=== PATIENT | female | born 1960 | race Two or more races ===

== ENCOUNTER 2024-12-04 03:01 | Inpatient (IN) | payer MEDICARE, MEDICAID ==
[~2024-12-04] VITALS: Ht 160 cm; Wt 93.8 kg
[2024-12-04] VITALS (9 sets, daily range): BP systolic 132–184; BP diastolic 74–101; PULSE 63–76; RESP 16–18; TEMP 97.4–98.5; O2SAT 96–98
--- NOTE | 2024-12-04 03:24 | ED.PDOC ---
GI ASSESSMENT HPI Comments 64 year old female presents to the ED with a chief compliant of abdominal pain onset 2 days. Patient has PMHx Diverticulitis. She states pain is similar as to when she has a diverticulitis flare up. She is currently experiencing sharp, suprapubic pain as well as nausea, pressure sensation on rectum with bowel movement, dysuria. Denies fever, chills, vomiting, diarrhea, constipation, dizziness, headache, hematemesis, melena, blood in stool. No other symptoms or modifying factors present at this time. Chief Complaint: Abdominal Pain Time Seen by MD: 03:15 Primary Care Provider: DR BLACKBURN Reviewed Notes: Medications, Allergies Allergies: Coded Allergies: NO KNOWN ALLERGIES (Unverified , 05/01/14) Information Source: Patient Mode of Arrival: Ambulatory Duration: Since onset Quality: Cramping, Sharp Vomitus: None Severity: Moderate Recent: None Recent Hx of: None Pain Location: Suprapubic Modifying Factors: Nothing Associated sign and symptoms: Nausea, Abdominal Pain Past Medical History PAST MEDICAL HISTORY: DM Past Medical History (Other): diverticulitis Surgical History: Denies all surgeries GLASS CUTTER HAND History: No Pertinent GLASS CUTTER HAND History Family History Family History: Unknown Social History Smoker: Non-Smoker Alcohol: Denies ETOH Use Drugs: Denies Drug Use Lives In: Home Constitutional: denies: chills, diaphoresis, fatigue, fever, malaise, sweats, weakness, others EENTM: denies: blurred vision, double vision, ear bleeding, ear discharge, ear drainage, ear pain, ear ringing, eye pain, eye redness, hearing loss, mouth pain, mouth swelling, nasal discharge, nose bleeding, nose congestion, nose pain, photophobia, tearing, throat pain, throat swelling, voice changes, others Respiratory: denies: cough, hemoptysis, orthopnea, SOB at rest, shortness of breath, SOB with excertion, stridor, wheezing, others Cardiovascular: denies: chest pain, dizzy spells, diaphoresis, Dyspnea on exertion, edema, irregular heart beat, left arm pain, lightheadedness, pa lpitations, PND, syncope, others Gastrointestinal: reports: abdominal pain, nausea; denies: abdomen distended, blood streaked bowels, constipated, diarrhea, dysphagia, difficulty swallowing, hematemesis, melena, poor appetite, poor fluid intake, rectal bleeding, rectal pain, vomiting, others Genitourinary: reports: dysuria; denies: abnormal vagina bleeding, burning, dyspareunia, flank pain, frequency, hematuria, incontinence, pain, , vagina discharge, urgency, others Neurological: denies: dizziness, fainting, headache, left sided numbness, left sided weakness, numbness, paresthesia, pre-existing deficit, right sided numbnes s, right sided weakness, seizure, speech problems, tingling, tremors, weakness, others Musculoskeletal: denies: back pain, gout, joint pain, joint swelling, muscle pain, muscle stiffness, neck pain, others Integumetry: denies: bruises, change in color, change in hair/nails, dryness, laceration, lesions, lumps, rash, wounds, others Allergic/Immunocompromised: denies: Difficulty Healing, Frequent Infections, Hives, Itching, others Hematologic/Lymphatic: denies: anemia, blood clots, easy bleeding, easy bruising, swollen glands, others Endocrine: denies: excessive hunger, excessive sweating, excessive thirst, excessive urination, flushing, intolerance to cold, intolerance to heat, unexplained weight gain, unexplained weight loss, others Psychiatric: denies: anxiety, bipolar disorder, depression, hopeless, panic disorder, schizophrenia, sleepless, suicidal, others All Other Systems: Reviewed and Negative Physical Exam General Appearance: Normal HEENT: Normal ENT Inspection, Pharynx Normal, TMs Normal Neck: Full Range of Motion, Non-Tender, Normal, Normal Inspection Respiratory: Chest Non-Tender, Lungs Clear, No Accessory Muscle Use, No Respi ratory Distress, Normal Breath Sounds Cardiovascular: No Edema, No JVD, No Murmur, No Gallop, Normal Peripheral Pulses, Regular Rate/Rhythm Breast Exam: Deferred Gastrointestinal: No Organomegaly, Non Tender, No Pulsatile Mass, Normal Bowel Sounds, Soft Genitalia: Deferred Pelvic: Deferred Rectal: Deferred Extremities: No calf tenderness, Normal capillary refill, Normal inspection, Normal range of motion, Non-tender, No pedal edema Musculoskeletal : Apperance: Normal Neurologic: Alert, senior executive assistant II-XII nml as Tested, No Motor Deficits, Normal Affect, Normal Mood, No Sensory Deficits Cerebellar Function: Normal Reflexes: Normal Skin: Dry, Normal Color, Warm Lymphatic: No Adenopathy Was a procedure done? Was a procedure done?: No GI differential Dx Differential Diagnosis: Diverticular disease, UTI, Urolithiasis, Dehydration, Electrolyte Imbalance, Food Poisoning X-Ray, Labs, Meds, VS Vital Signs Date Time Temp Pulse Resp B/P (MAP) Pulse Ox O2 Delivery O2 Flow Rate FiO2 12/04/24 06:30 155/60 (91) 12/04/24 05:07 76 16 96 Room Air* 0 21 12/04/24 05:06 170/80 (110) 12/04/24 04:50 98.6 76 16 186/89 (121) 96 98.6 12/04/24 03:02 99.0 80 20 172/90 95 99.0 Lab Test 12/04/24 04:08 12/04/24 03:39 Range/Units Urine Color Colorless Yellow Urine Clarity Clear Clear Urine pH 6.5 5.0-9.0 Urine Specific [place] 1.012 1.001-1.035 Urine Protein Negative Negative Urine Ketones Negative Negative Urine Blood Trace H Negative /uL Urine Nitrite Negative Negative Urine Bilirubin Negative Negative Urine Urobilinogen Normal Negative mg/dL Urine Leukocyte Esterase Negative Negative /uL Urine RBC 4 0 - 4 /hpf Urine Microscopic WBC 2 0-5 /HPF Urine Squamous Epithelial Cells Few <5 /hpf Urine Bacteria None seen None Seen /hpf Urine Glucose Normal Normal mg/dL White Blood Count 11.3 H 4.4-10.8 10^3/uL Red Blood Count 4.34 4.0-5.20 10^6/uL Hemoglobin 12.7 12.2-16.2 g/dL Hematocrit 37.6 36.0-46.0 % Mean Corpuscular Volume 86.7 80.0-100.0 fL Mean Corpuscular Hemoglobin 29.2 28.0-32.0 pg Mean Corpuscular Hemoglobin Concent 33.7 32.0-36.0 g/dL Red Cell Distribution Width 13.5 11.8-14.3 % Platelet Count 255 140-450 10^3/uL Mean Platelet Volume 9.1 6.9-10.8 fL Neutrophils (%) (Auto) 71.3 37.0-80.0 % Lymphocytes (%) (Auto) 20.2 10.0-50.0 % Monocytes (%) (Auto) 6.2 0.0-12.0 % Eosinophils (%) (Auto) 1.7 0.0-7.0 % Basophils (%) (Auto) 0.6 0.0-2.0 % Neutrophils # (Auto) 8.1 1.6-8.6 10 ^3/uL Lymphocytes # (Auto) 2.3 0.4-5.4 10 ^3/uL Monocytes # (Auto) 0.7 0-1.3 10 ^3/uL Eosinophils # (Auto) 0.2 0-0.8 10 ^3/uL Basophils # (Auto) 0.1 0-0.2 10 ^3/uL Nucleated Red Blood Cells 0.1 % Sodium Level 140 136-145 mmol/L Potassium Level 3.8 3.5-5.1 mmol/L Chloride Level 106 98-107 mmol/L Carbon Dioxide Level 23 20-31 mmol/L Anion Gap 11 5-15 Blood Urea Nitrogen 17 9-23 mg/dL Creatinine 0.99 0.550-1.02 mg/dL Glomerular Filtration Rate Calc 63 >90 mL/min BUN/Creatinine Ratio 17.2 10.0-20.0 Serum Glucose 146 H 74-106 mg/dL Calcium Level 9.2 8.7-10.4 mg/dL Total Bilirubin 0.4 0.2-1.0 mg/dL Aspartate Amino Transferase (AST) 14 13-40 U/L Alanine Aminotransferase (ALT) < 9 7-40 U/L Alkaline Phosphatase 134 H 46-116 U/L Total Protein 7.6 5.7-8.2 g/dL Albumin 4.3 3.2-4.8 g/dL Lipase 49 12-53 U/L Current Medications Medications (Trade) Dose Ordered Sig/Mishel Route Start Time Stop Time Status Last Admin Ondansetron HCl (Zofran) 4 mg ONCE ONCE IV 12/04/24 03:30 12/04/24 03:31 DC 12/04/24 04:59 Sodium Chloride 1,000 ml @ 1,000 mls/hr Q1H ONCE IVB 12/04/24 03:30 12/04/24 04:29 DC 12/04/24 04:58 Ketorolac Tromethamine (Toradol Injection) 15 mg ONCE ONCE IV 12/04/24 03:30 12/04/24 03:31 DC 12/04/24 05:01 Time of 1ST Reevaluation: 03:45 Reevaluation 1ST: Unchanged Patient Education/Counseling: Diagnosis, Treatment, Prognosis Family Education/Counseling: No Family Present SEPSIS Sepsis Screen Date sepsis recognized/suspect: Dec 04, 2024 Time Sepsis recognized/suspect: 306 Recent Procedure: No On Antibiotic Therapy: No Respiratory Rate >20: No Heart Rate >90: No Temp<36 C (96.8 F) or >38.3 C: No SBP <90 or MAP <65 mmHG: No New Acute Mental Status Change: No Is the patient on CPAP, BIPAP,: No Physician Orders Ct Ab Pel With Iv Con Only (12/04/24 03:23) Vital Signs Date Time Temp Pulse Resp B/P (MAP) Pulse Ox O2 Delivery O2 Flow Rate FiO2 12/04/24 06:30 155/60 (91) 12/04/24 05:07 76 16 96 Room Air* 0 21 12/04/24 05:06 170/80 (110) 12/04/24 04:50 98.6 76 16 186/89 (121) 96 98.6 12/04/24 03:02 99.0 80 20 172/90 95 99.0 Laboratory Tests Test 12/04/24 03:39 White Blood Count 11.3 10^3/uL (4.4-10.8) H Medications Medications Dose Ordered Sig/Mishel Route Start Time Stop Time Status Last Admin Dose Admin Ketorolac Tromethamine 15 mg ONCE ONCE IV 12/04/24 03:30 12/04/24 03:31 DC 12/04/24 05:01 Ondansetron HCl 4 mg ONCE ONCE IV 12/04/24 03:30 12/04/24 03:31 DC 12/04/24 04:59 Sodium Chloride 1,000 ml @ 1,000 mls/hr Q1H ONCE IVB 12/04/24 03:30 12/04/24 04:29 DC 12/04/24 04:58 Departure 1 Departure Time of Disposition: 06:58 (Patient presented with abdominal pain that was concerning for possible appendicits, gastritis, cholecystitis, colitis, gastroenteritis, sbo, or orther possible surgical emergency. Data: 1. I ordered and reviewed the result of at least 3 labs including a CBC, BMP, and Urinalysis. 2. I independently interpreted the following tests: CT Abdoment and Pelvis is concerning for acute diverticulitis .Risk:This patient has a high risk of morbidity due to further diagnostic testing or treatment and may suffer from an acute abdominal process disorder. Workup reveals acute diverticulitis and intractable abdominal pain and patient should be admitted for further workup. and possible expert consultation. ) Impression: Primary Impression: Acute diverticulitis Additional Impression: Intractable abdominal pain Disposition: ADMITTED INPATIENT Admit to: Med Surg Condition: Serious Critical Care Note Critical Care Time?: Yes Critical care comment: Intractable abdominal pain Authorized and Performed by: Rm Solano MD Total critical care time: Approximately 39 minutes Due to a high probability of clinically significant, life threatening deterioration, the patient required my highest level of preparedness to intervene emergently and I personally spent this critical care time directly and personally managing the patient. This critical care time included obtaining a history; examining the patient; pulse oximetry; ordering and review of studies; arranging urgent treatment with development of a management plan; evaluation of patient's response to treatment; frequent reassessment; and, discussions with other providers. This critical care time was performed to assess and manage the high probability of imminent, life-threatening deterioration that could result in multi-organ failure. It was exclusive of separately billable procedures and treating other patients and teaching time. Please see my other sections and the rest of the note for further information on patient assessment and treatment. Stability Stability form required: No I personally scribed for LIZZIE LEYVA MD ([email or web address]) on 12/04/24 at 03:23. Electronically submitted by Lurdes Menjivar ([email or web address]). LIZZIE LEYVA MD Dec 04, 2024 03:23 RM SOLANO MD Dec 04, 2024 06:59
[2024-12-04 04:00] LABS: Hematocrit 37.6 % (36.0-46.0); Hemoglobin 12.7 g/dL (12.2-16.2); Mean Corpuscular Hemoglobin 29.2 pg (28.0-32.0); Mean Corpuscular Volume 86.7 fL (80.0-100.0); Nucleated Red Blood Cells % 0.1 %
[2024-12-04 04:24] LABS: Albumin 4.3 g/dL (3.2-4.8); Anion Gap 11 (5-15); BUN/Creatinine Ratio 17.2 (10.0-20.0); Blood Urea Nitrogen 17 mg/dL (9-23); Calcium 9.2 mg/dL (8.7-10.4); Carbon Dioxide 23 mmol/L (20-31); Chloride 106 mmol/L (98-107); Lipase 49 U/L (12-53); Potassium 3.8 mmol/L (3.5-5.1); Sodium 140 mmol/L (136-145); Total Protein 7.6 g/dL (5.7-8.2)
[2024-12-04 04:25] LABS: Bilirubin, Total 0.4 mg/dL (0.2-1.0)
[2024-12-04 04:29] LABS: Alanine Aminotransferase < 9 U/L (7-40); Alkaline Phosphatase 134 U/L (46-116); Glucose 146 mg/dL (74-106)
[2024-12-04 04:48] LABS: Urine Protein, UAD Negative (Negative)
[2024-12-04] MEDS: SODIUM CHLORIDE 0.9% 1,000 ML IVB ONE (04:58)
[2024-12-04] MEDS: ONDANSETRON HCL 4 MG/2 ML VIAL IV ONE ×2 (04:59→07:00)
[2024-12-04] MEDS: KETOROLAC TROMETH 30 MG/ML 1ML VIAL IV ONE (05:01)
[2024-12-04] MEDS: IOHEXOL 300 MG/ML 100ML BOTTLE IJ ONE (06:02)
--- NOTE | 2024-12-04 06:24 | DVH ---
Exam: CT CT AB PEL WITH IV CON ONLY History: lower abd pain Comparison Study: None Technique: Multidetector spiral CT of the abdomen was performed from lung bases to pubic symphysis. A xial imaging was performed with intravenous contrast following the uneventful administration of 100 m l Omnipaque 300. Coronal and sagittal multiplanar reformats were obtained from the axial data set by the technologist. Radiation Dose : 1. Abdomen/Pelvis: CTDIvol 24.4 mGy, DLP 1530.3 mGy*cm. Findings: Lung Bases: Lung bases are clear. Visualized portions of the heart and pericardium are unremarkable. Liver: The liver is normal in size. No focal lesions. Gallbladder and Biliary Tree: The gallbladder is surgically absent. No intrahepatic biliary ductal d ilatation. The common bile duct measures 0.7 cm. Spleen: Unremarkable Pancreas: The pancreas enhances normally and there are no focal lesions. The main pancreatic duct is not dilated Adrenal Glands: Unremarkable Kidneys: Kidneys enhance symmetrically. No calculi or hydronephrosis. GI tract: The stomach is grossly normal in appearance. No evidence of small bowel wall thickening or abnormal dilatation to suggest bowel obstruction. There is colonic diverticulosis. There is severe m ucosal thickening of the sigmoid colon with fat stranding consistent with acute sigmoid diverticuliti s. Normal caliber appendix without acute appendicitis. Peritoneum/mesentery/retroperitoneum. No evidence of free intraperitoneal air. No ascites. No evidenc e of suspicious lymphadenopathy. Abdominal Wall: Unremarkable. Vasculature: Abdominal aorta and main branches are unremarkable. Normal vascular enhancement. Urinary Bladder: Grossly unremarkable for degree of distention. Pelvic Organs: Unremarkable Musculoskeletal: No aggressive focal bony lesions, acute fractures or dislocation. IMPRESSION: 1. Findings suggestive of acute uncomplicated sigmoid diverticulitis. 2. Prior cholecystectomy.
[2024-12-04] MEDS: MORPHINE SULFATE 4 MG/ML SYR/VIAL IV ONE (07:00)
[2024-12-04] MEDS: SODIUM CHLORIDE 0.9% 1,000 ML IV ONE (07:43)
[2024-12-04] MEDS: ceFAZolin 2 GM/D5W50ml 50 ML IV ONE (09:24)
--- NOTE | 2024-12-04 09:53 | DVHHP2 ---
Admitting Diagnosis: Chief Complaint Abdominal pain for 2 days, nausea, sharp pain to abdomen and rectum with bowel movements History of Present Illness History of Present Illness Abdominal pain: Patient presents with a 2-day history of abdominal pain. The pain is described as sharp and localized to the abdomen and rectum, particularly with bowel movements. Associated symptoms include nausea. Patient denies fever, chills, vomiting, dizziness, or melena in her stool. Diverticulitis: Patient has a history of diverticulitis, which may be related to her current abdominal pain presentation. Diabetes: Patient has a history of diabetes, though no specific details about current management or symptoms are provided. Obesity: Patient has a history of obesity, but no specific details about current weight status or management are provided. Medical History - Diverticulitis - Diabetes - Obesity Allergies - No known allergies Past Medical History PAST MEDICAL HISTORY: DM Past Medical History (Other): diverticulitis Surgical History: Denies all surgeries REAL ESTATE PROCESSOR History: No Pertinent REAL ESTATE PROCESSOR History Social History Smoker: Non-Smoker Alcohol: Denies ETOH Use Drugs: Denies Drug Use Lives In: Home Constitutional: denies: chills, diaphoresis, fatigue, fever, malaise, sweats, weakness, others EENTM: denies: blurred vision, double vision, ear bleeding, ear discharge, ear drainage, ear pain, ear ringing, eye pain, eye redness, hearing loss, mouth pain, mouth swelling, nasal discharge, nose bleeding, nose congestion, nose pain, photophobia, tearing, throat pain, throat swelling, voice changes, others Respiratory: denies: cough, hemoptysis, orthopnea, SOB at rest, shortness of breath, SOB with excertion, stridor, wheezing, others Cardiovascular: denies: chest pain, dizzy spells, diaphoresis, Dyspnea on exertion, edema, irregular heart beat, left arm pain, lightheadedness, palpitations, PND, syncope, others Gastrointestinal: reports: abdominal pain, nausea; denies: abdomen distended, blood streaked bowels, constipated, diarrhea, dysphagia, difficulty swallowing, hematemesis, melena, poor appetite, poor fluid intake, rectal bleeding, rectal pain, vomiting, others Genitourinary: reports: dysuria; denies: abnormal vagina bleeding, burning, dyspareunia, flank pain, frequency, hematuria, incontinence, pain, , vagina discharge, urgency, others Neurological: denies: dizziness, fainting, headache, left sided numbness, left sided weakness, numbness, paresthesia, pre-existing deficit, right sided numbness, right sided weakness, seizure, speech problems, tingling, tremors, weakness, others Musculoskeletal: denies: back pain, gout, joint pain, joint swelling, muscle pain, muscle stiffness, neck pain, others Integumetry: denies: bruises, change in color, change in hair/nails, dryness, laceration, lesions, lumps, rash, wounds, others Allergic/Immunocompromised: denies: Difficulty Healing, Frequent Infections, Hives, Itching, others Hematologic/Lymphatic: denies: anemia, blood clots, easy bleeding, easy bruising, swollen glands, others Endocrine: denies: excessive hunger, excessive sweating, excessive thirst, excessive urination, flushing, intolerance to cold, intolerance to heat, unexplained weight gain, unexplained weight loss, others Psychiatric: denies: anxiety, bipolar disorder, depression, hopeless, panic disorder, schizophrenia, sleepless, suicidal, others All Other Systems: Reviewed and Negative Allergies: Coded Allergies: NO KNOWN ALLERGIES (Unverified , 05/01/14) Home Meds Active Scripts Ondansetron Odt 4MG Tab (ZOFRAN PO) 4 Mg Tb, 4 MG PO Q6HP PRN for 10 Days, #40 TAB ODT TAB-DISSOLVE IN MOUTH, THEN SWALLOW Prov:KAVON DOBSON NP 12/05/24 Amoxicillin & Pot Clavulanate (AUGMENTIN TABLET) 875 Mg Tb, 875 MG PO BID for 10 Days, #20 TAB Prov:KAVON DOBSON NP 12/05/24 Current Medications Current Medications Medications (Trade) Dose Ordered Sig/Mishel Route PRN Reason Start Time Stop Time Status Last Admin Ceftriaxone Sodium 50 ml @ 100 mls/hr DAILY IV 12/11/24 10:00 12/05/24 18:31 DC Vital Signs Vital Signs Date Time Temp Pulse Resp B/P (MAP) Pulse Ox O2 Delivery O2 Flow Rate FiO2 12/05/24 16:31 98.0 74 18 107/88 (94) 91 98.0 12/05/24 08:00 Room Air* 0 21 Physical Exam General Appearance: Normal HEENT: Normal ENT Inspection Neck: Full Range of Motion Respiratory: Chest Non-Tender, Lungs Clear, Normal Breath Sounds Cardiovascular: No Edema, No JVD, No Murmur, No Gallop, Normal Peripheral Pulses, Regular Rate/Rhythm Breast Exam: Deferred Gastrointestinal: Some abdominal tenderness Genitalia: Deferred Pelvic: Deferred Rectal: Deferred Extremities: Normal range of motion, Non-tender, No pedal edema Musculoskeletal : Normal Apperance: Normal Neurologic: Alert,No Motor Deficits, Normal Affect, Normal Mood, No Sensory Deficits Cerebellar Function: Normal Reflexes: Normal Skin: Dry, Normal Color, Warm Lymphatic: No Adenopathy SEPSIS Sepsis Screen Date sepsis recognized/suspect: Dec 04, 2024 Time Sepsis recognized/suspect: 306 Recent Procedure: No On Antibiotic Therapy: No Respiratory Rate >20: No Heart Rate >90: No Temp<36 C (96.8 F) or >38.3 C: No SBP <90 or MAP <65 mmHG: No New Acute Mental Status Change: No Is the patient on CPAP, BIPAP,: No Physician Orders Ct Ab Pel With Iv Con Only (12/04/24 03:23) Admit (12/04/24 09:46) Code Status (12/04/24 09:46) Discharge (12/05/24 13:43) Vital Signs Date Time Temp Pulse Resp B/P (MAP) Pulse Ox O2 Delivery O2 Flow Rate FiO2 12/05/24 16:31 98.0 74 18 107/88 (94) 91 98.0 12/05/24 16:15 98.6 83 18 96 12/05/24 16:00 98.0 74 18 107/88 (94) 91 98.0 12/05/24 12:41 98.6 83 18 115/68 (84) 96 98.6 12/05/24 09:33 102/57 12/05/24 08:43 98.1 76 18 102/57 (72) 92 98.1 12/05/24 08:00 98.1 76 18 102/57 (72) 92 98.1 12/05/24 08:00 65 20 96 Room Air* 0 21 12/05/24 05:05 75 18 140/74 (96) 91 12/05/24 01:00 98.6 73 18 111/63 (79) 97 98.6 12/05/24 01:00 65 18 133/73 (93) 97 12/05/24 00:00 65 18 133/73 (93) 97 12/04/24 22:28 177/94 12/04/24 21:00 98.1 76 18 177/94 (121) 97 98.1 12/04/24 20:00 63 18 97 Room Air* 0 21 12/04/24 17:00 98.5 65 16 132/74 (93) 96 98.5 12/04/24 16:00 98.5 65 16 132/74 (93) 96 98.5 12/04/24 15:00 65 16 97 Room Air* 0 21 12/04/24 14:47 97.5 65 16 184/101 (128) 97 97.5 12/04/24 13:00 98.2 63 16 158/85 (109) 97 98.2 12/04/24 11:10 97.4 63 18 167/82 (110) 98 97.4 12/04/24 10:28 135/73 12/04/24 07:54 98.3 69 16 159/80 (106) 96 98.3 Laboratory Tests Test 12/04/24 03:39 12/05/24 06:25 White Blood Count 11.3 10^3/uL (4.4-10.8) H 11.7 10^3/uL (4.4-10.8) H Results Labs Test 12/05/24 06:25 12/04/24 10:22 12/04/24 04:08 12/04/24 03:39 Range/Units White Blood Count 11.7 H 4.4-10.8 10^3/uL Red Blood Count 4.25 4.0-5.20 10^6/uL Hemoglobin 12.4 12.2-16.2 g/dL Hematocrit 37.3 36.0-46.0 % Mean Corpuscular Volume 87.9 80.0-100.0 fL Mean Corpuscular Hemoglobin 29.2 28.0-32.0 pg Mean Corpuscular Hemoglobin Concent 33.2 32.0-36.0 g/dL Red Cell Distribution Width 13.0 11.8-14.3 % Platelet Count 217 140-450 10^3/uL Mean Platelet Volume 9.4 6.9-10.8 fL Neutrophils (%) (Auto) 90.7 H 37.0-80.0 % Lymphocytes (%) (Auto) 6.1 L 10.0-50.0 % Monocytes (%) (Auto) 1.7 0.0-12.0 % Eosinophils (%) (Auto) 1.5 0.0-7.0 % Basophils (%) (Auto) 0.0 0.0-2.0 % Neutrophils # (Auto) 10.6 H 1.6-8.6 10 ^3/uL Lymphocytes # (Auto) 0.7 0.4-5.4 10 ^3/uL Monocytes # (Auto) 0.2 0-1.3 10 ^3/uL Eosinophils # (Auto) 0.2 0-0.8 10 ^3/uL Basophils # (Auto) 0 0-0.2 10 ^3/uL Nucleated Red Blood Cells 0.0 % Sodium Level 140 136-145 mmol/L Potassium Level 4.0 3.5-5.1 mmol/L Chloride Level 107 98-107 mmol/L Carbon Dioxide Level 25 20-31 mmol/L Anion Gap 8 5-15 Blood Urea Nitrogen 12 9-23 mg/dL Creatinine 0.98 0.550-1.02 mg/dL Glomerular Filtration Rate Calc 64 >90 mL/min BUN/Creatinine Ratio 12.2 10.0-20.0 Serum Glucose 151 H 74-106 mg/dL Calcium Level 8.7 8.7-10.4 mg/dL Total Bilirubin 0.8 0.2-1.0 mg/dL Aspartate Amino Transferase (AST) 32 13-40 U/L Alanine Aminotransferase (ALT) 20 7-40 U/L Alkaline Phosphatase 113 46-116 U/L Total Protein 6.5 5.7-8.2 g/dL Albumin 3.6 3.2-4.8 g/dL POC Glucose 113 H 70-106 mg/dl Urine Color Colorless Yellow Urine Clarity Clear Clear Urine pH 6.5 5.0-9.0 Urine Specific [place] 1.012 1.001-1.035 Urine Protein Negative Negative Urine Ketones Negative Negative Urine Blood Trace H Negative /uL Urine Nitrite Negative Negative Urine Bilirubin Negative Negative Urine Urobilinogen Normal Negative mg/dL Urine Leukocyte Esterase Negative Negative /uL Urine RBC 4 0 - 4 /hpf Urine Microscopic WBC 2 0-5 /HPF Urine Squamous Epithelial Cells Few <5 /hpf Urine Bacteria None seen None Seen /hpf Urine Glucose Normal Normal mg/dL Lipase 49 12-53 U/L Plan - IV antibiotics will be started - Pain medication will be given as needed - Anti-nausea medicine will be given as needed Tests: - Repeat blood tests will be done in the morning Plan discussed with: Patient KAVON DOBSON NP Dec 04, 2024 09:53
[2024-12-04] MEDS ORDERED: hydrALAZINE HCL 20 MG/ML VL IV PRN (10:00)
[2024-12-04] MEDS ORDERED: ACETAMINOPHEN 325 MG TAB PO PRN (10:00)
[2024-12-04] MEDS: ENOXAPARIN SOD 40 MG/0.4 ML SYRINGE SC SCH (10:00)
[2024-12-04] MEDS: EZETIMIBE 10 MG TAB PO SCH (10:00)
[2024-12-04] MEDS ORDERED: MORPHINE SULFATE INJ 2 MG/ml SYRG IV PRN (10:00)
[2024-12-04] MEDS: TOPIRAMATE 25 MG TAB PO SCH (10:28)
[2024-12-04] MEDS: LOSARTAN POTASSIUM 50 MG TAB PO SCH (10:28)
[2024-12-04] MEDS: InsuLIN REG 1unit/0.01ml Soln (100units/ml) SC ONE (10:29)
[2024-12-04] MEDS: ACCU-CHEK COMFORT CURVE STRIP VI ONE (10:29)
[2024-12-04] MEDS: DEXTROSE (50%) 50ML SYRG IV ONE (10:29)
[2024-12-04] MEDS: FAMOTIDINE 20 MG TAB PO ONE (10:29)
[2024-12-04] MEDS: SODIUM CHLORIDE 0.9% 1,000 ML IV SCH (10:30)
[2024-12-04] MEDS: HYDROcodone-ACET 5/325MG TAB PO PRN (22:32)
[2024-12-05] VITALS (9 sets, daily range): BP systolic 102–140; BP diastolic 57–88; PULSE 65–83; RESP 18–20; TEMP 98–98.6; O2SAT 91–97
[2024-12-05] MEDS: ONDANSETRON HCL 4 MG/2 ML VIAL IV PRN (04:06)
[2024-12-05 08:11] LABS: Alanine Aminotransferase 20 U/L (7-40); Albumin 3.6 g/dL (3.2-4.8); Alkaline Phosphatase 113 U/L (46-116); Anion Gap 8 (5-15); BUN/Creatinine Ratio 12.2 (10.0-20.0); Blood Urea Nitrogen 12 mg/dL (9-23); Calcium 8.7 mg/dL (8.7-10.4); Carbon Dioxide 25 mmol/L (20-31); Potassium 4.0 mmol/L (3.5-5.1); Sodium 140 mmol/L (136-145); Total Protein 6.5 g/dL (5.7-8.2)
[2024-12-05 08:12] LABS: Bilirubin, Total 0.8 mg/dL (0.2-1.0)
[2024-12-05 08:13] LABS: Chloride 107 mmol/L (98-107); Glucose 151 mg/dL (74-106); Hematocrit 37.3 % (36.0-46.0); Hemoglobin 12.4 g/dL (12.2-16.2); Mean Corpuscular Hemoglobin 29.2 pg (28.0-32.0); Mean Corpuscular Volume 87.9 fL (80.0-100.0); Nucleated Red Blood Cells % 0.0 %
[2024-12-05] MEDS: diphenhdrAMINE HCL 50 MG/1 ML VL IV PRN (09:32)
--- NOTE | 2024-12-05 13:33 | DVHDS2 ---
Discharge Summary Date of Admission Dec 04, 2024 at 09:46 Date of Discharge: Dec 05, 2024 Admitting Diagnosis Acute diverticulitis Wounds: none Labs/Diagnostic Data: Laboratory Results Test 12/05/24 06:25 12/04/24 10:22 12/04/24 04:08 12/04/24 03:39 White Blood Count 11.7 10^3/uL (4.4-10.8) Red Blood Count 4.25 10^6/uL (4.0-5.20) Hemoglobin 12.4 g/dL (12.2-16.2) Hematocrit 37.3 % (36.0-46.0) Mean Corpuscular Volume 87.9 fL (80.0-100.0) Mean Corpuscular Hemoglobin 29.2 pg (28.0-32.0) Mean Corpuscular Hemoglobin Concent 33.2 g/dL (32.0-36.0) Red Cell Distribution Width 13.0 % (11.8-14.3) Platelet Count 217 10^3/uL (140-450) Mean Platelet Volume 9.4 fL (6.9-10.8) Neutrophils (%) (Auto) 90.7 % (37.0-80.0) Lymphocytes (%) (Auto) 6.1 % (10.0-50.0) Monocytes (%) (Auto) 1.7 % (0.0-12.0) Eosinophils (%) (Auto) 1.5 % (0.0-7.0) Basophils (%) (Auto) 0.0 % (0.0-2.0) Neutrophils # (Auto) 10.6 10 ^3/uL (1.6-8.6) Lymphocytes # (Auto) 0.7 10 ^3/uL (0.4-5.4) Monocytes # (Auto) 0.2 10 ^3/uL (0-1.3) Eosinophils # (Auto) 0.2 10 ^3/uL (0-0.8) Basophils # (Auto) 0 10 ^3/uL (0-0.2) Nucleated Red Blood Cells 0.0 % Sodium Level 140 mmol/L (136-145) Potassium Level 4.0 mmol/L (3.5-5.1) Chloride Level 107 mmol/L (98-107) Carbon Dioxide Level 25 mmol/L (20-31) Anion Gap 8 (5-15) Blood Urea Nitrogen 12 mg/dL (9-23) Creatinine 0.98 mg/dL (0.550-1.02) Glomerular Filtration Rate Calc 64 mL/min (>90) BUN/Creatinine Ratio 12.2 (10.0-20.0) Serum Glucose 151 mg/dL (74-106) Calcium Level 8.7 mg/dL (8.7-10.4) Total Bilirubin 0.8 mg/dL (0.2-1.0) Aspartate Amino Transferase (AST) 32 U/L (13-40) Alanine Aminotransferase (ALT) 20 U/L (7-40) Alkaline Phosphatase 113 U/L (46-116) Total Protein 6.5 g/dL (5.7-8.2) Albumin 3.6 g/dL (3.2-4.8) POC Glucose 113 mg/dl (70-106) Urine Color Colorless (Yellow) Urine Clarity Clear (Clear) Urine pH 6.5 (5.0-9.0) Urine Specific [place] 1.012 (1.001-1.035) Urine Protein Negative (Negative) Urine Ketones Negative (Negative) Urine Blood Trace /uL (Negative) Urine Nitrite Negative (Negative) Urine Bilirubin Negative (Negative) Urine Urobilinogen Normal mg/dL (Negative) Urine Leukocyte Esterase Negative /uL (Negative) Urine RBC 4 /hpf (0 - 4) Urine Microscopic WBC 2 /HPF (0-5) Urine Squamous Epithelial Cells Few /hpf (<5) Urine Bacteria None seen /hpf (None Seen) Urine Glucose Normal mg/dL (Normal) Lipase 49 U/L (12-53) Other Laboratory Tests 12/05/24 06:25 Brief Hx & Hospital Course: Jonelle Molina is a 64-year-old female that was admitted to [facility] on December 04, 2024 with a cheif complaint of abdominal pain. CT imaging showed abdominal pain was related to acute diverticulitis. Patient was admitted for IV antibiotics. No sepsis found. Patient had a good appetite and it was ambulating and reported normal bowel movements. No diarrhea, constipation, or melena was found. Patient was able to tolerate a regular diet. On re- examination, patient stated she felt well enough to be discharged home. Abdomen was non-tender. Patient was afebrile. Patient was discharged home on oral antibiotics and she will follow up with her [facility] physicians. Full report of hospital stay was given to Will nurse practitioner from [place] facility. Operations or Procedures none Condition at Discharge: Good Final Diagnosis/Problems List Abdominal pain r/t acute diverticulitis Morbid obesity Benign Essential Hypertension Discharge Disposition: Home SNF Discharge Physician in charge at time of: Dr. Knight Will this Physician continue t: Yes Discharge Instruct/Medications Diet: Regular Activity: No Restrictions, As Tolerated Scheduled Amoxicillin & Pot Clavulanate (Augmentin Tablet), 875 MG PO BID Scheduled PRN Ondansetron Odt 4MG Tab (Zofran Po), 4 MG PO Q6HP PRN 45 Discharge Statement: "Patient was advised to return to the ER or call 911 if any headaches, dizziness, shortness of breath, chest pain, abdominal pain, bleeding, fevers, or worsening of medical condition. Patient was counseled about treatment plan, medications, possible side effects, patientverbalized understanding. All questions were answered to the best of my ability. This discharge took greater then 30 minutes in planning, reviewing documentation, counseling the patient, and discussing with other team members." ASSESSMENT ASSESSMENT Assessment KAVON DOBSON NP Dec 05, 2024 13:33
[2024-12-05] MEDS ORDERED: AUG875T PO (13:42)
[2024-12-05] MEDS ORDERED: ZOFR4T PO (13:43)
--- NOTE | 2024-12-05 13:44 | DVHDS2 ---
Discharge Summary Date of Admission Dec 04, 2024 at 09:46 Date of Discharge: Dec 05, 2024 Labs/Diagnostic Data: Laboratory Results Test 12/05/24 06:25 12/04/24 10:22 12/04/24 04:08 12/04/24 03:39 White Blood Count 11.7 10^3/uL (4.4-10.8) Red Blood Count 4.25 10^6/uL (4.0-5.20) Hemoglobin 12.4 g/dL (12.2-16.2) Hematocrit 37.3 % (36.0-46.0) Mean Corpuscular Volume 87.9 fL (80.0-100.0) Mean Corpuscular Hemoglobin 29.2 pg (28.0-32.0) Mean Corpuscular Hemoglobin Concent 33.2 g/dL (32.0-36.0) Red Cell Distribution Width 13.0 % (11.8-14.3) Platelet Count 217 10^3/uL (140-450) Mean Platelet Volume 9.4 fL (6.9-10.8) Neutrophils (%) (Auto) 90.7 % (37.0-80.0) Lymphocytes (%) (Auto) 6.1 % (10.0-50.0) Monocytes (%) (Auto) 1.7 % (0.0-12.0) Eosinophils (%) (Auto) 1.5 % (0.0-7.0) Basophils (%) (Auto) 0.0 % (0.0-2.0) Neutrophils # (Auto) 10.6 10 ^3/uL (1.6-8.6) Lymphocytes # (Auto) 0.7 10 ^3/uL (0.4-5.4) Monocytes # (Auto) 0.2 10 ^3/uL (0-1.3) Eosinophils # (Auto) 0.2 10 ^3/uL (0-0.8) Basophils # (Auto) 0 10 ^3/uL (0-0.2) Nucleated Red Blood Cells 0.0 % Sodium Level 140 mmol/L (136-145) Potassium Level 4.0 mmol/L (3.5-5.1) Chloride Level 107 mmol/L (98-107) Carbon Dioxide Level 25 mmol/L (20-31) Anion Gap 8 (5-15) Blood Urea Nitrogen 12 mg/dL (9-23) Creatinine 0.98 mg/dL (0.550-1.02) Glomerular Filtration Rate Calc 64 mL/min (>90) BUN/Creatinine Ratio 12.2 (10.0-20.0) Serum Glucose 151 mg/dL (74-106) Calcium Level 8.7 mg/dL (8.7-10.4) Total Bilirubin 0.8 mg/dL (0.2-1.0) Aspartate Amino Transferase (AST) 32 U/L (13-40) Alanine Aminotransferase (ALT) 20 U/L (7-40) Alkaline Phosphatase 113 U/L (46-116) Total Protein 6.5 g/dL (5.7-8.2) Albumin 3.6 g/dL (3.2-4.8) POC Glucose 113 mg/dl (70-106) Urine Color Colorless (Yellow) Urine Clarity Clear (Clear) Urine pH 6.5 (5.0-9.0) Urine Specific [place] 1.012 (1.001-1.035) Urine Protein Negative (Negative) Urine Ketones Negative (Negative) Urine Blood Trace /uL (Negative) Urine Nitrite Negative (Negative) Urine Bilirubin Negative (Negative) Urine Urobilinogen Normal mg/dL (Negative) Urine Leukocyte Esterase Negative /uL (Negative) Urine RBC 4 /hpf (0 - 4) Urine Microscopic WBC 2 /HPF (0-5) Urine Squamous Epithelial Cells Few /hpf (<5) Urine Bacteria None seen /hpf (None Seen) Urine Glucose Normal mg/dL (Normal) Lipase 49 U/L (12-53) Other Laboratory Tests 12/05/24 06:25 Final Diagnosis/Problems List Acute diverticulitis Start Augmentin twice a day for 10 days zofran as needed for nausea Discharge Disposition: Home Discharge Instruct/Medications Diet: See Comment Diet comment: sot, no spices or heavy food Activity: No Restrictions, As Tolerated Follow Up/Referral: pcp 1 week Scheduled Amoxicillin & Pot Clavulanate (Augmentin Tablet), 875 MG PO BID Scheduled PRN Ondansetron Odt 4MG Tab (Zofran Po), 4 MG PO Q6HP PRN Discharge Statement: "Patient was advised to return to the ER or call 911 if any headaches, dizziness, shortness of breath, chest pain, abdominal pain, bleeding, fevers, or worsening of medical condition. Patient was counseled about treatment plan, medications, possible side effects, patientverbalized understanding. All questions were answered to the best of my ability. This discharge took greater then 30 minutes in planning, reviewing documentation, counseling the patient, and discussing with other team members." ASSESSMENT ASSESSMENT Assessment Acute diverticulitis Start Augmentin twice a day for 10 days zofran as needed for nausea KAVON DOBSON NP Dec 05, 2024 13:44
[2024-12-05] MEDS: AMOXICILLIN/CLAVUL 875 MG TAB PO ONE (14:12)
== END 2024-12-05 16:45 | disposition home or self-care (01) | DRG 392 ==
LOC: ER 03:01 → OVERFLOW 09:46 → CENTRAL 14:41
PROVIDERS: ADMIT Nurse Practitioner; ATTEND Nurse Practitioner
DX: K57.32 Diverticulitis of large intestine without perforation or abscess without bleeding (principal); E11.9 Type 2 diabetes mellitus without complications; I10 Essential (primary) hypertension; E66.01 Morbid (severe) obesity due to excess calories; Z79.899 Other long term (current) drug therapy; Z68.36 Body mass index [BMI] 36.0-36.9, adult
CPT/HCPCS: 36415; 74177; 80053; 81001; 82962; 83690; 85025; 96365; 96375; 99291; G0378; J1885; J2405; J3490